=== PATIENT | female | born 1995 | race African-American/Black ===

== ENCOUNTER 2024-11-12 13:05 | Inpatient (IN) | payer BC, OTHER ==
[2024-11-12 13:45] VITALS: BMI 31.4
[2024-11-12] MEDS: Cyclobenzaprine 10 MG TAB PO SCH (14:10)
[2024-11-12] MEDS: NIFEdipine 10 MG CAP PO SCH ×2 (14:10→14:44)
[2024-11-12 14:23] LABS: ALT (SGPT) 12 U/L (Less than 34); AST (SGOT) 25 U/L (11-34); Albumin 2.5 g/dL (3.1-4.5); Alkaline Phosphatase 271 U/L (40-110); Anion Gap 15 mmol/L (10-20); BUN (Urea Nitrogen) 5 mg/dL (7.0-18.7); Bilirubin, Total 0.4 mg/dL (0.3-1.2); Calc. Creatinine Clearance 179 mL/min (70-130); Calcium 9.7 mg/dL (7.8-10.44); Carbon Dioxide 19 mmol/L (22-29); Chloride 106 mmol/L (98-107); Globulin 4.3 g/dL (2.4-3.5); Glucose 72 mg/dL (70-105); Potassium 3.3 mmol/L (3.5-5.1); Sodium 137 mmol/L (136-145)
[2024-11-12 14:35] LABS: Hematocrit 28.8 % (34.9-44.5); Hemoglobin 9.6 g/dL (12.0-15.5); Mean Corpuscular Hemoglobin 24.6 pg (27.0-33.0); Mean Corpuscular Volume 73.7 fL (81.6-98.3); Platelet Count 222 10x3/uL (150-450); Red Blood Cell (RBC) Count 3.91 10x6/uL (3.90-5.03); White Blood Cell (WBC) Count 16.24 10x3/uL (3.5-10.5)
[2024-11-12 15:07] LABS: Anisocytosis SLIGHT = 6-15 cells (100X) (0-5/hpf); MDiff Complete? YES; Microcytosis SLIGHT = 6-15 cells (100X) (0-5/hpf)
[2024-11-12 15:08] LABS: Glucose, Urine (Dipstick) Normal (Negative); Leukocyte 100 (Negative); Protein, Urine (Dipstick) 100 mg/dl (Neg-Trace); Specific Gravity, Urine 1.010 (1.005-1.030)
[2024-11-12 15:24] LABS: Bacteria/HPF 4+ HPF (None Seen); CAUTI Indications for Culture Pelvic or flank pain; RBC/HPF 0-3 HPF (0-3); Urine Culture Reflex No No
[2024-11-12] MEDS: cefTRIAXone\\ROCEPHIN 1 GM in Sodium Chloride 0.9% 100 ML IVPB SCH (15:39)
[2024-11-12 15:59] LABS: Protein, Urine Random Quant 247.0 mg/dL (1-14)
[2024-11-12] MEDS ORDERED: hydrALAZINE 20 MG/ML VIAL SLOW IVP PRN ×2 (16:22)
[2024-11-12] MEDS ORDERED: Calcium Gluc 4.6 MEQ/10 ML (100 MG/ML) SLOW IVP PRN (16:22)
[2024-11-12] MEDS ORDERED: Ondansetron PF 4 MG/2 ML Vial IVP PRN ×2 (16:22→18:53)
[2024-11-12] MEDS ORDERED: Lidocaine 1% (PF) 30 ML VIAL SC PRN (16:22)
[2024-11-12] MEDS ORDERED: Oxytocin 30 units/NS 500 ML 500 ML IV SCH (16:30)
[2024-11-12] MEDS: Magnesium Sulfate 20 gm/500 ml 20 GM/500 ML BAG IVPB SCH (17:15)
[2024-11-12] MEDS: Oxytocin 30 units/NS 500 ML 500 ML IV SCH (17:17)
[2024-11-12] MEDS: Penicillin G Potassium 5 MILL.UNITS in Sodium Chloride 0.9% 100 ML IVPB SCH (17:17)
[2024-11-12] MEDS: hydrALAZINE 20 MG/ML VIAL SLOW IVP PRN (17:28)
[2024-11-12 18:27] LABS: Syphilis Antibody Index 0.10 S/CO (<1.00 Non-Reactive)
[2024-11-12] MEDS ORDERED: diphenhydrAMINE 50 MG/ML VIAL IVP PRN (18:53)
[2024-11-12] MEDS ORDERED: Acetaminophen 325 MG TAB PO PRN (18:53)
[2024-11-12] MEDS ORDERED: Communication Order-Pharmacy FS SCH (19:00)
[2024-11-12 19:05] LABS: Lipase 8 U/L (8-78); Magnesium 3.8 mg/dL (1.6-2.6)
[2024-11-12] MEDS: fentaNYL/Ropivacaine Epidural 100 ML ONE (19:21)
[2024-11-12] MEDS: Penicillin G 2.5 MILL.units 2.5 MILL.UNITS in Premix 1 BAG IVPB SCH (20:45)
[2024-11-12 22:51] LABS: HIV (1/2) Antibody/Antigen Non-Reactive (NonReactive); HIV 1/2 INDEX 0.13 S/CO (<1.00); Hep B Surf Ag - L&D Non-Reactive S/CO (NonReactive)
[2024-11-12 23:05] LABS: Magnesium 5.5 mg/dL (1.6-2.6)
[2024-11-13] MEDS: fentaNYL 2 mcg/Ropivacaine 0.2% Epidural 100 ML CADD EPIDURAL SCH (05:32)
[2024-11-13 07:45] LABS: Platelet Count 245 10x3/uL (150-450)
[2024-11-13 07:46] LABS: Hematocrit 29.5 % (34.9-44.5); Hemoglobin 9.6 g/dL (12.0-15.5); Mean Corpuscular Hemoglobin 23.8 pg (27.0-33.0); Mean Corpuscular Volume 73.2 fL (81.6-98.3); Red Blood Cell (RBC) Count 4.03 10x6/uL (3.90-5.03); White Blood Cell (WBC) Count 19.00 10x3/uL (3.5-10.5)
[2024-11-13 08:12] LABS: ALT (SGPT) 10 U/L (Less than 34); AST (SGOT) 24 U/L (11-34); Albumin 2.1 g/dL (3.1-4.5); Alkaline Phosphatase 271 U/L (40-110); Anion Gap 17 mmol/L (10-20); BUN (Urea Nitrogen) 5 mg/dL (7.0-18.7); Bilirubin, Total 0.9 mg/dL (0.3-1.2); Calc. Creatinine Clearance 142 mL/min (70-130); Calcium 8.6 mg/dL (7.8-10.44); Carbon Dioxide 16 mmol/L (22-29); Chloride 106 mmol/L (98-107); Globulin 4.3 g/dL (2.4-3.5); Glucose 107 mg/dL (70-105); Potassium 3.4 mmol/L (3.5-5.1); Sodium 136 mmol/L (136-145)
[2024-11-13 08:14] LABS: Anisocytosis SLIGHT = 6-15 cells (100X) (0-5/hpf); Microcytosis SLIGHT = 6-15 cells (100X) (0-5/hpf); Polychromasia SLIGHT = 2-3 cells (100X) (0-2/hpf)
[2024-11-13 08:15] LABS: Giant Platelets SLIGHT HPF (0-5); MDiff Complete? YES; Platelet Adequacy Comment Appears Adequate
[2024-11-13 10:23] LABS: Analyzer IN Cardio CS NICU; Critical Notified By: Udy, RRT; Critical Notified Whom: Shanna, L&D RN
[2024-11-13 10:26] LABS: Analyzer IN Cardio CS NICU; Critical Notified By: uDY, rrt; Critical Notified Whom: Shanna, L&D RN; pH (Cord, venous) 7.268 (7.250-7.350)
[2024-11-13] MEDS: NIFEdipine XL 30 MG ER.TAB PO SCH (13:50)
[2024-11-13] MEDS: Acetaminophen 500 MG TAB PO PRN (16:53)
[2024-11-13] MEDS: Ibuprofen 800 MG TAB PO PRN (21:31)
[2024-11-14] MEDS: Erythromycin Base 0.5% Oint 1 GM TUBE ONE (07:38)
[2024-11-14] MEDS: Carboprost 250 MCG/ML AMP ONE (07:39)
[2024-11-14] MEDS: Tranexamic Acid 1,000 MG/10 ML VIAL ONE (07:39)
[2024-11-14] MEDS ORDERED: Dextrose 50% Abboject 50 ML SYRINGE SLOW IVP PRN (10:31)
[2024-11-14] MEDS ORDERED: Glucagon 1 MG/ML KIT IM PRN (10:31)
[2024-11-14] MEDS: NIFEdipine XL 30 MG ER.TAB PO SCH (10:46)
[2024-11-14] MEDS ORDERED: Preparation H Ointment 28 GM TUBE PR PRN (11:13)
[2024-11-14] MEDS ORDERED: Benzocaine-Menthol 82.5 ML CAN TOP PRN (11:13)
[2024-11-14] MEDS ORDERED: HYDROcodone/Acetaminophen 5/325 mg Tablet PO PRN ×2 (11:13)
[2024-11-14] MEDS ORDERED: Oxytocin 30 units/NS 500 ML 500 ML IV SCH (11:13)
[2024-11-14] MEDS ORDERED: diphenhydrAMINE 25 MG CAP PO PRN (11:13)
[2024-11-14] MEDS ORDERED: Lanolin Ointment 7 GM TUBE TOP PRN (11:13)
[2024-11-14] MEDS ORDERED: Bisacodyl 10 MG SUPP PR PRN (11:13)
[2024-11-14] MEDS ORDERED: Milk Of Magnesia 30 ML UDCUP PO PRN (11:13)
[2024-11-14] MEDS ORDERED: hydrALAZINE 20 MG/ML VIAL SLOW IVP PRN (11:13)
[2024-11-14] MEDS ORDERED: Ondansetron PF 4 MG/2 ML Vial IVP PRN (11:13)
[2024-11-14] MEDS ORDERED: Boostrix 0.5 ML (Tdap) VIAL (>/=7 yrs of age) IM ONE (12:00)
[2024-11-14] MEDS ORDERED: HYDROcodone/Acetaminophen 10/325 mg Tablet PO PRN (13:22)
[2024-11-14] MEDS ORDERED: Acetaminophen 325 MG TAB PO PRN (13:24)
[2024-11-14] MEDS: Ibuprofen 800 MG TAB PO SCH ×2 (14:20→21:59)
[2024-11-14] MEDS: Ferrous Sulfate 325 MG TAB PO SCH ×2 (14:21→17:16)
[2024-11-15 11:58] VITALS: BP 144/85; TEMP 98.4
== END 2024-11-15 16:25 | disposition home or self-care (01) | DRG 806 ==
LOC: CSHLD/OP 13:05 → CSHLD 16:11 → CSHPP 11-14 10:58
PROVIDERS: ADMIT Obstetrics & Gynecology; ATTEND Obstetrics & Gynecology
PROC: 10907ZC Drainage of Amniotic Fluid, Therapeutic from Products of Conception, Via Natural or Artificial Opening (ICD-10-PCS; principal; 2024-11-13)
PROC: 10E0XZZ Delivery of Products of Conception, External Approach (ICD-10-PCS; 2024-11-13)
PROC: 4A1HXCZ Monitoring of Products of Conception, Cardiac Rate, External Approach (ICD-10-PCS; 2024-11-13)
PROC: 4A033R1 Measurement of Arterial Saturation, Peripheral, Percutaneous Approach (ICD-10-PCS; 2024-11-13)
DX: O14.14 Severe pre-eclampsia complicating childbirth (principal); N39.0 Urinary tract infection, site not specified; Z37.0 Single live birth; O24.429 Gestational diabetes mellitus in childbirth, unspecified control; D50.9 Iron deficiency anemia, unspecified; O99.02 Anemia complicating childbirth; O23.43 Unspecified infection of urinary tract in pregnancy, third trimester; O70.1 Second degree perineal laceration during delivery; Z3A.34 34 weeks gestation of pregnancy; Z79.84 Long term (current) use of oral hypoglycemic drugs
CPT/HCPCS: 36415; 36416; 51702; 71046; 76815; 76819; 80053; 81001; 82570; 82805; 83690; 83735; 84156; 85025; 86762; 86780; 86850; 86900; 86901; 87340; 87389; 99285; J0360; J0665; J0696; J2270; J2540; J2590; J3475; J7120